=== PATIENT | male | born 1965 | race Caucasian/White ===

== ENCOUNTER 2016-11-20 19:17 | Emergency (ER) | payer OTHER ==
[2016-11-20 19:30] VITALS: O2SAT 95
[2016-11-20] MEDS ORDERED: BACIGUENT PACKET TP ONE (19:33)
[2016-11-20] MEDS ORDERED: Adacel Vial IM ONE ×2 (19:33→19:34)
[2016-11-20] MEDS ORDERED: XYLOCAINE 1% HCL 20 ML MDV IJ ONE (19:33)
[2016-11-20] MEDS ORDERED: XYLOCAINE 1% HCL 20 ML MDV ONE (19:34)
--- NOTE | 2016-11-20 19:37 | ERPHSYRPT ---
- History of Present Illness Time Seen by Provider: 11/20/16 19:23 Source: patient Exam Limitations: no limitations Patient Subjective Stated Complaint: pt cut his hand on a glass at 3;30 today - applied butterflies but this elenita it is cont to bleed -he has a towel wrapped around his hand and it is cont to bleed Triage Nursing Assessment: pt is awake and alert and able to answer questions Physician History: This is a 51-year-old white male arrives with complaint of laceration to his left hand overlying the thenar eminence since 3:30 PM today patient states he was washing dishes he states he got a piece of glass into the left hand which he pulled out he states he's been bleeding since he denies any other complaints she denies any problems moving his fingers or decreased sensation to his fingers. Past medical history is negative. Social history includes tobacco use Occurred: this afternoon (3:30 PM today) Method of Injury: other (lacerated on glass while washing dishes) Severity of Pain-Max: mild Severity of Pain-Current: mild Extremities Pain Location: hand: left Modifying Factors: Improves With: nothing Associated Symptoms: No back pain, No chills, No chest discomfort, No chest pain , No dyspnea, No fever, No jaw pain, No nausea, No neck pain, No sweating, No short of breath, No vomiting Allergies/Adverse Reactions: No Known Drug Allergies Allergy (Unverified 11/20/16 19:30) Home Medications: No Reportable Medications [No Reported Medications] 11/20/16 [History] Hx Tetanus, Diphtheria Vaccination/Date Given: No Hx Influenza Vaccination/Date Given: No Hx Pneumococcal Vaccination/Date Given: No Immunizations Up to Date: No - Review of Systems Constitutional: No Fever, No Chills Eyes: No Symptoms Ears, Nose, & Throat: No Symptoms Respiratory: No Cough, No Dyspnea Cardiac: No Chest Pain, No Edema, No Syncope Abdominal/Gastrointestinal: No Abdominal Pain, No Nausea, No Vomiting, No Diarrhea Genitourinary Symptoms: No Dysuria Musculoskeletal: Other (3 cm laceration left hand thenar eminence), No Arthralgias, No Back Pain, No Neck Pain, No Deformity, No Joint Redness, No Joint Pain, No Joint Swelling, No Myalgias Skin: Other (3 cm laceration left hand thenar emnience) Neurological: No Dizziness, No Focal Weakness, No Sensory Changes All Other Systems: Reviewed and Negative - Past Medical History Pertinent Past Medical History: Yes Cardiac History: Hypertension - Past Surgical History Past Surgical History: Yes Gastrointestinal: Hernia Repair - Social History Smoking Status: Current every day smoker Exposure to second hand smoke: Yes Drug Use: other Patient Lives Alone: No - Nursing Vital Signs Nursing Vital Signs: Initial Vital Signs Temperature 98.1 F Temperature Source Oral Pulse Rate 92 Respiratory Rate 16 Blood Pressure [Right Arm] 208/132 Pain Intensity 0 - Physical Exam General Appearance: mild distress, anxiety Eyes, Ears, Nose, Throat Exam: moist mucous membranes Neck Exam: non-tender, supple Cardiovascular/Respiratory Exam: chest non-tender, normal breath sounds, regular rate/rhythm, no respiratory distress Abdominal Exam: non-tender, No guarding Back Exam: normal inspection, No vertebral tenderness Shoulder Exam: normal inspection, non-tender, no evidence of injury, normal ROM Elbow/Forearm Exam: normal inspection, non-tender, no evidence of injury, normal ROM Wrist Exam: normal inspection, non-tender, no evidence of injury, normal ROM Hand Exam: normal ROM, laceration (3 cm laceration left hand center emninence) Neuro/Tendon Exam: normal sensation, normal motor functions Mental Status Exam: alert, oriented x 3, cooperative Skin Exam: normal color, warm, dry SpO2 Interpretation: normal (95%) SpO2: 95 Oxygen Delivery: Room Air - Course Nursing assessment & vital signs reviewed: Yes Ordered Tests: Active Orders 24 hr Category Date Time Status Prepare for Sutures STAT Care 11/20/16 19:33 Active Sutures STAT Care 11/20/16 19:34 Active Wound Care STAT Care 11/20/16 19:33 Active Medication Summary Discontinued Medications Generic Name Dose Route Start Last Admin Trade Name Freq PRN Reason Stop Dose Admin Bacitracin 0.9 gm 11/20/16 19:33 11/20/16 20:05 Baciguent Packet TP 11/20/16 19:34 0.9 gm STAT ONE Administration Bacitracin Confirm 11/20/16 20:04 Baciguent Packet Administered 11/20/16 20:05 Dose 1 gm .ROUTE .STK-MED ONE Diphtheria/Tetanus/Acell Pertussis 0.5 ml 11/20/16 19:33 11/20/16 19:46 Adacel Vial IM 11/20/16 19:34 0.5 ml .ONCE ONE Administration Diphtheria/Tetanus/Acell Pertussis Confirm 11/20/16 19:34 Adacel Vial Administered 11/20/16 19:35 Dose 0.5 ml IM .STK-MED ONE Lidocaine HCl 5 ml 11/20/16 19:33 11/20/16 19:46 Xylocaine 1% Hcl 20 Ml Mdv IJ 11/20/16 19:34 5 ml STAT ONE Administration Lidocaine HCl Confirm 11/20/16 19:34 Xylocaine 1% Hcl 20 Ml Mdv Administered 11/20/16 19:35 Dose 10 ml .ROUTE .STK-MED ONE - Progress Progress: improved Progress Note: 11/20/16 20:06 Patient is quite anxious over receiving sutures blood pressure is elevated and noted. Patient does state he has a history of high blood pressure and plans to follow- up with his family doctor. 3 cm laceration repair left hand volar surface thenar eminence. Laceration sterilely prepped and draped Anesthetized by nurse with 1% lidocaine. Wound inspected no foreign bodies noted patient's left thumb and hand neurovascularly intact. Laceration repaired using 8 5. 0 Prolene sutures. Bacitracin and dressing applied. Will watch patient to be sure he settles down and recheck blood pressure. 11/20/16 20:41 Patient's blood pressure elevated but improving he states she has chronic high blood pressure he does not want any further evaluation secondary to this Will discharge patient. - Departure Time of Disposition: 20:42 Departure Disposition: Home Clinical Impression: Hand laceration Qualifiers: Encounter type: initial encounter Foreign body presence: without foreign body Laterality: left Qualified Code(s): S61.412A - Laceration without foreign body of left hand, initial encounter Condition: Fair Critical Care Time: No Referrals: DOCTOR,NO FAMILY [Primary Care Provider] - Instructions: Care for a Laceration After Repair Additional Instructions: Return home. Bacitracin to laceration until healed. Keep area clean and dry. Sutures out 5-7 days. Follow-up with your family doctor or return if signs of infection or problems. Return for acute distress or for severe symptoms. Follow-up with your family doctor for continued monitoring and treatment of your blood pressure.
[2016-11-20] MEDS ORDERED: BACIGUENT PACKET ONE (20:04)
[2016-11-20 20:19] VITALS: PULSE 92
[2016-11-20 20:52] VITALS: BP 200/120
== END 2016-11-20 20:47 | disposition home or self-care (01) ==
LOC: ED 19:17
PROC: 0HQGXZZ Repair Left Hand Skin, External Approach (ICD-10-PCS; principal; 2016-11-20)
DX: S61.412A Laceration without foreign body of left hand, initial encounter (principal); W25.XXXA Contact with sharp glass, initial encounter; Y93.G1 Activity, food preparation and clean up
CPT/HCPCS: 12002; 90471; 90715; 96372; 99283; A9270-GY

== ENCOUNTER 2018-11-13 01:51 | Emergency (ER) | payer SELFPAY ==
--- NOTE | 2018-11-13 02:01 | ERPHSYRPT ---
- History of Present Illness Time Seen by Provider: 11/13/18 01:55 Source: patient, family Exam Limitations: clinical condition Physician History: 53 y/o white male with known chf on no meds, presents with sig soa. sx worse over 3 days. no meds, no allergies, no doctor. pt is a smoker of cigarettes and continues to smoke. Timing/Duration: day(s) (3) Activities at Onset: none Severity of Dyspnea-Max: moderate Severity of Dyspnea-Current: moderate Possible Cause: occasional episodes Modifying Factors: Improves With: activity Associated Symptoms: cough, edema, wheezing, ankle swelling, leg swelling Allergies/Adverse Reactions: coconut Allergy (Verified 11/13/18 02:28) Home Medications: No Reportable Medications [No Reported Medications] 11/20/16 [History] Hx Tetanus, Diphtheria Vaccination/Date Given: No Hx Influenza Vaccination/Date Given: No Hx Pneumococcal Vaccination/Date Given: No - Review of Systems Constitutional: No Symptoms Eyes: No Symptoms Ears, Nose, & Throat: No Symptoms Respiratory: Cough, Dyspnea Cardiac: Edema Abdominal/Gastrointestinal: No Symptoms, No Abdominal Pain, No Nausea, No Vomiting, No Diarrhea Genitourinary Symptoms: No Symptoms Musculoskeletal: No Symptoms Skin: No Symptoms Neurological: No Symptoms Psychological: No Symptoms Endocrine: No Symptoms Hematologic/Lymphatic: No Symptoms Immunological/Allergic: No Symptoms All Other Systems: Reviewed and Negative - Past Medical History Pertinent Past Medical History: Yes Neurological History: No Pertinent History ENT History: No Pertinent History Cardiac History: Hypertension Respiratory History: No Pertinent History Endocrine Medical History: No Pertinent History Musculoskeletal History: No Pertinent History GI Medical History: No Pertinent History History: No Pertinent History Psycho-Social History: No Pertinent History Male Reproductive Disorders: No Pertinent History - Past Surgical History Past Surgical History: Yes Neuro Surgical History: No Pertinent History Cardiac: No Pertinent History Respiratory: No Pertinent History Gastrointestinal: Hernia Repair Genitourinary: No Pertinent History Musculoskeletal: No Pertinent History Male Surgical History: No Pertinent History - Social History Smoking Status: Current every day smoker Exposure to second hand smoke: Yes Drug Use: other Patient Lives Alone: No - Nursing Vital Signs Nursing Vital Signs: Initial Vital Signs Pulse Rate 103 H 11/13/18 01:54 Respiratory Rate 28 H 11/13/18 01:54 Blood Pressure 186/140 11/13/18 01:54 O2 Sat by Pulse Oximetry 98 11/13/18 01:54 Pain Scale Pain Intensity 0 - Physical Exam General Appearance: moderate distress, alert, anxiety Eye Exam: PERRL/EOMI, eyes nml inspection Ears, Nose, Throat Exam: hearing grossly normal, normal ENT inspection, normal pharynx Neck Exam: normal inspection, non-tender, supple, full range of motion Respiratory Exam: respiratory distress, diminished breath sounds, crackles/rales Cardiovascular/Chest Exam: normal heart sounds, tachycardia Abdominal/Gastrointestinal Exam: soft, normal bowel sounds, No tenderness, No guarding, No rebound Rectal Exam: not done Extremity Exam: normal range of motion, pelvis stable, pedal edema Neurologic Exam: alert, oriented x 3, cooperative, game advisor II-XII nml as tested Skin Exam: normal color, warm, dry Lymphatic Exam: No adenopathy SpO2 Interpretation: normal O2 Delivery: Room Air - Course EKG Interpreted by Me: RATE (102), Sinus Rhythm, Sinus Tach, Left Mccormick Deviation , Non-specific ST Changes, Other (no comparison ekg) Ordered Tests: Active Orders 24 hr Category Date Time Status Carton Stapler STAT Care 11/13/18 02:11 Active EKG-ER Only STAT Care 11/13/18 02:10 Active EKG-ER Only STAT Care 11/13/18 05:45 Ordered IV Insertion STAT Care 11/13/18 02:10 Active Oxygen-ED Only Nasal Cannula 2 lpm Care 11/13/18 02:10 Active CHEST 1 VIEW (PORTABLE) Stat Exams 11/13/18 02:11 Taken CHEST WITH CONTRAST [CT] Stat Exams 11/13/18 03:05 Taken BLOOD CULTURE Stat Lab 11/13/18 03:28 Received CBC W DIFF Stat Lab 11/13/18 02:45 Completed CMP Stat Lab 11/13/18 02:45 Completed D-DIMER QUANTITATION Stat Lab 11/13/18 02:45 Completed Lactic Acid Stat Lab 11/13/18 02:45 Completed NT PRO BNP Stat Lab 11/13/18 02:45 Completed TROPONIN Q3H Lab 11/13/18 02:45 Completed TROPONIN Q3H Lab 11/13/18 05:15 Completed TROPONIN Q3H Lab 11/13/18 08:15 Ordered TROPONIN Q3H Lab 11/13/18 11:15 Ordered TROPONIN Q3H Lab 11/13/18 14:15 Ordered Medication Summary Discontinued Medications Generic Name Dose Route Start Last Admin Trade Name Freq PRN Reason Stop Dose Admin Furosemide 40 mg 11/13/18 02:10 11/13/18 02:45 Lasix 40 Mg/4 Ml IV 11/13/18 02:11 40 mg STAT ONE Administration Furosemide Confirm 11/13/18 02:20 Lasix 40 Mg/4 Ml Administered 11/13/18 02:21 Dose 40 mg .ROUTE .STK-MED ONE Methylprednisolone Sodium Succinate 125 mg 11/13/18 02:10 11/13/18 02:44 Solu-Medrol 125 Mg IV 11/13/18 02:11 125 mg STAT ONE Administration Methylprednisolone Sodium Succinate Confirm 11/13/18 02:21 Solu-Medrol 125 Mg Administered 11/13/18 02:22 Dose 125 mg .ROUTE .STK-MED ONE Lab/Rad Data: Laboratory Result Diagrams 11/13/18 02:45 11/13/18 02:45 Laboratory Results 11/13/18 11/13/18 11/13/18 Range/Units 05:15 02:45 02:45 WBC (4.0-10.5) K/mm3 RBC (4.1-5.6) M/mm3 Hgb (12.5-18.0) gm/dl Hct (42-50) % MCV (78-100) fl MCH (26-32) pg MCHC (32-36) g/dl RDW (11.5-14.0) % Plt Count (150-450) K/mm3 MPV (6-9.5) fl Gran % (36.0-66.0) % Eos # (Auto) (0-0.5) Absolute Lymphs (auto) (1.0-4.6) Absolute Monos (auto) (0.0-1.3) Lymphocytes % (24.0-44.0) % Monocytes % (0.0-12.0) % Eosinophils % (0.00-5.0) % Basophils % (0.0-0.4) % Absolute Granulocytes (1.4-6.9) Basophils # (0-0.4) D-Dimer 1242 H* (215-500) ng/mL Sodium (137-145) mmol/L Potassium (3.5-5.1) mmol/L Chloride (98-107) mmol/L Carbon Dioxide (22-30) mmol/L Anion Gap (5-15) MEQ/L BUN (9-20) mg/dL Creatinine (0.66-1.25) mg/dL Estimated GFR ML/MIN Glucose (74-106) mg/dL Lactic Acid (0.4-2.0) Calcium (8.4-10.2) mg/dL Total Bilirubin (0.2-1.3) mg/dL AST (17-59) U/L ALT (0-50) U/L Alkaline Phosphatase (38-126) U/L Troponin I 0.125 H* 0.148 H* (0.000-0.034) ng/mL NT-Pro-B Natriuret Pep (0-900) pg/mL Serum Total Protein (6.3-8.2) g/dL Albumin (3.5-5.0) g/dL 11/13/18 11/13/18 11/13/18 Range/Units 02:45 02:45 02:45 WBC 7.2 (4.0-10.5) K/mm3 RBC 4.36 (4.1-5.6) M/mm3 Hgb 13.7 (12.5-18.0) gm/dl Hct 42.3 (42-50) % MCV 97.0 (78-100) fl MCH 31.4 (26-32) pg MCHC 32.4 (32-36) g/dl RDW 13.7 (11.5-14.0) % Plt Count 199 (150-450) K/mm3 MPV 10.2 H (6-9.5) fl Gran % 70.0 H (36.0-66.0) % Eos # (Auto) 0.19 (0-0.5) Absolute Lymphs (auto) 1.22 (1.0-4.6) Absolute Monos (auto) 0.72 (0.0-1.3) Lymphocytes % 17.0 L (24.0-44.0) % Monocytes % 10.0 (0.0-12.0) % Eosinophils % 2.6 (0.00-5.0) % Basophils % 0.4 (0.0-0.4) % Absolute Granulocytes 5.03 (1.4-6.9) Basophils # 0.03 (0-0.4) D-Dimer (215-500) ng/mL Sodium 138 (137-145) mmol/L Potassium 4.3 (3.5-5.1) mmol/L Chloride 107 (98-107) mmol/L Carbon Dioxide 21 L (22-30) mmol/L Anion Gap 13.6 (5-15) MEQ/L BUN 21 H (9-20) mg/dL Creatinine 1.06 (0.66-1.25) mg/dL Estimated GFR > 60.0 ML/MIN Glucose 106 (74-106) mg/dL Lactic Acid 0.8 (0.4-2.0) Calcium 8.3 L (8.4-10.2) mg/dL Total Bilirubin 0.50 (0.2-1.3) mg/dL AST 45 (17-59) U/L ALT 66 H (0-50) U/L Alkaline Phosphatase 74 (38-126) U/L Troponin I (0.000-0.034) ng/mL NT-Pro-B Natriuret Pep 7000 H (0-900) pg/mL Serum Total Protein 6.6 (6.3-8.2) g/dL Albumin 3.3 L (3.5-5.0) g/dL - Progress Progress: improved Air Movement: good Progress Note: 11/13/18 05:55 ct chest angiogram-no pulmonary emboli. bilat pleural effusions. pulmonary edema. repeat ekg-no change from earlier ekg dated today at 0157 pt states he is feeling a little better. 11/13/18 06:[address] millard ED physician at [facility] ED. i reviewed pt hx, condition, lab, ekg, xray results with him. he accepts pt in transfer to ED Blood Culture(s) Obtained: Yes Discussed with DrToño: Other (freeman) Counseled pt/family regarding: lab results, diagnosis, need for follow-up, rad results - Departure Departure Disposition: Transfer Clinical Impression: CHF (congestive heart failure), Elevated troponin, HTN (hypertension), Pulmonary edema, Bilateral pleural effusion Condition: Fair Critical Care Time: Yes Critical Care Time(excluding separately billable procedures): 30-74 minutes Referrals: DOCTOR,NO FAMILY [Primary Care Provider] - Instructions: Heart Failure
[2018-11-13] MEDS ORDERED: Lasix 40 MG/4 ML IV ONE (02:10)
[2018-11-13] MEDS ORDERED: solu-MEDROL 125 MG IV ONE (02:10)
[2018-11-13] MEDS ORDERED: Lasix 40 MG/4 ML ONE (02:20)
[2018-11-13] MEDS ORDERED: solu-MEDROL 125 MG ONE (02:21)
[2018-11-13 02:49] LABS: BASOPHIL % 0.4 % (0.0-0.4); Basophil (Absolute #) 0.03 (0-0.4); Eosinophil % 2.6 % (0.00-5.0); Eosinophil (Absolute #) 0.19 (0-0.5); Granulocyte Absolute (ANC) 5.03 (1.4-6.9); Hematocrit 42.3 % (42-50); Hemoglobin 13.7 gm/dl (12.5-18.0); Lymphocyte (Absolute #) 1.22 (1.0-4.6); Mean Corpuscular Hemoglobin 31.4 pg (26-32); Mean Corpuscular Hgb Concent. 32.4 g/dl (32-36); Mean Platelet Volume 10.2 fl (6-9.5); Monocyte (Absolute #) 0.72 (0.0-1.3); Platelet Count 199 K/mm3 (150-450); Red Blood Count 4.36 M/mm3 (4.1-5.6); Red Cell Distribution Width 13.7 % (11.5-14.0); White Blood Count 7.2 K/mm3 (4.0-10.5)
[2018-11-13 03:12] LABS: ALBUMIN 3.3 g/dL (3.5-5.0); ALKALINE PHOSPHATASE 74 U/L (38-126); ANION GAP 13.6 MEQ/L (5-15); BLOOD UREA NITROGEN 21 mg/dL (9-20); CHLORIDE 107 mmol/L (98-107); Calcium 8.3 mg/dL (8.4-10.2); Carbon Dioxide 21 mmol/L (22-30); Creatinine 1 1.06 mg/dL (0.66-1.25); Glucose 106 mg/dL (74-106); NT PRO BNP 7000 pg/mL (0-900); Potassium 4.3 mmol/L (3.5-5.1); SGOT/AST 45 U/L (17-59); SGPT/ALT 66 U/L (0-50); SODIUM 138 mmol/L (137-145); Total Protein 6.6 g/dL (6.3-8.2)
[2018-11-13 06:05] VITALS: O2SAT 93
[2018-11-13] MEDS ORDERED: VASOTEC I.V. 2.5 MG IV ONE ×2 (06:05→06:34)
[2018-11-13 06:06] VITALS: BP 187/133; PULSE 102
--- NOTE | 2018-11-13 08:49 | XRAY ---
Indication: Short of breath. Elevated d-dimer. Multiple contiguous axial images obtained through the chest using 80 cc Isovue 300 contrast and PE protocol. Comparison: None There is good opacification of the pulmonary arteries to includes the lobar and segmental branches. No filling defect or pulmonary embolus. Heart is enlarged. Aorta is normal in course and caliber. Prominent shotty mediastinal lymph nodes, largest pretracheal measuring 1.8 x 3.2 cm. Also a few tiny left perihilar calcified nodes. Examination of the lung parenchyma demonstrates pulmonary edema and moderate bilateral effusions with minimal compressive atelectasis. Mild biapical subpleural cystic changes. Bony thorax intact. Limited upper abdomen demonstrates tiny calcified splenic granuloma and 1.6 cm right renal cyst. Impression: 1. Negative pulmonary embolus. 2. Cardiomegaly, pulmonary edema, and bilateral effusions favoring cardiac decompensation. Superimposed pneumonia not completely excluded. 3. Nonspecific prominent mediastinal lymph nodes and evidence for old granulomatous disease. 4. Incidental biapical subpleural cystic changes and right renal cyst. Comment: Preliminary interpretation was made by [facility]. No critical discrepancy. CT DI 20.10
--- NOTE | 2018-11-13 08:51 | XRAY ---
Indication: Short of breath. Comparison: None Portable chest demonstrates cardiomegaly, pulmonary edema, and small bibasilar effusions left greater than right favoring cardiac decompensation. Superimposed pneumonia not completely excluded. Bony thorax intact.
== END 2018-11-13 07:31 | disposition short-term general hospital (02) ==
LOC: ED 01:51
DX: I50.1 Left ventricular failure, unspecified (principal); R74.8 Abnormal levels of other serum enzymes; I10 Essential (primary) hypertension; J90 Pleural effusion, not elsewhere classified
CPT/HCPCS: 36000; 36415; 71045; 71260; 80053; 83605; 83880; 84484; 85025; 85379; 87040; 93005; 93041; 96374; 96375; 99285; 99291; J1940; J2930